=== PATIENT | female | born 1995 | race Two or more races ===

== ENCOUNTER 2016-08-26 04:07 | Inpatient (IN) | payer OTHER ==
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
--- NOTE | ~2016-08-26 | HP ---
Unit #: [id number] #: [id number] Patient: CICI LION [id number] [place] [address] [id number] MR#: [id number] NAME: CICI LION ROOM: [facility] Age: 20 Sex: F Admission Date: 08/26/2016 : 1995 Attending Physician: Ayush Styles M.D. Admitting Physician: Ayush Styles M.D. Primary Care Physician: Primary Care Physician No HISTORY AND PHYSICAL HISTORY OF PRESENT ILLNESS Cici is a 20 year old admitted to [address] [place] [address] with depression and self-harming behavior. She has been scratching her left wrist. PAST MEDICAL HISTORY 1. Obesity. 2. Asthma. PAST SURGICAL HISTORY T and A. ALLERGIES Triaminic, IV dye. SOCIAL HISTORY She denies cigarettes, alcohol and illicit drug use. FAMILY HISTORY Medically noncontributory. REVIEW OF SYSTEMS CONSTITUTIONAL: No fever or chills. HEENT: Denies any sore throat, ear pain or runny nose. CARDIOVASCULAR: Denies chest pain, irregular heart rhythm or palpitations. CHEST: Denies shortness of breath or cough. No hemoptysis. GASTROINTESTINAL: Denies nausea, vomiting, diarrhea or chronic constipation. ENDOCRINE: Denies history of increased thirst or urination. No recent significant weight loss or gain. GENITOURINARY: Denies dysuria, frequency, or hematuria. SKIN: Denies any rashes. HEMATOLOGIC: Denies history of increased bleeding or bruising. MUSCULOSKELETAL: Denies any hot, swollen joints. No generalized muscle pain. NEUROLOGIC: Denies problems with vision or speech. No frequent, severe headaches. No numbness, tingling or weakness in any extremities. Denies loss of bladder or bowel control. CURRENT MEDICATIONS 1. Celexa 20 mg daily. 2. Milk of Magnesia p.r.n. 3. Maalox p.r.n. 4. Tylenol p.r.n. Unit #: [id number] #: [id number] Patient: CICI LION 5. Proventil inhaler p.r.n. PHYSICAL EXAMINATION GENERAL: Alert, obese, in no apparent distress. VITAL SIGNS: Blood pressure 142/88, heart rate 90, respirations 16, temperature 98.6. WEIGHT: 270. HEIGHT: 5 feet 4 inches. SKIN: Warm and dry without rash or lesion. HEENT: Normocephalic. TMs not viewed. Oral and nasal passages clear. Conjunctivae clear. PERRLA. EOMs intact. NECK: Supple without lymphadenopathy or thyromegaly. HEART: Regular rate and rhythm without murmur. LUNGS: Clear. ABDOMEN: Soft, nontender. : Not done. EXTREMITIES: No evidence of cyanosis, clubbing or edema. Moves all without focal deficit. NEUROLOGICAL: Grossly within normal limits. Cranial Nerves: II: Visual angulo are intact. III, IV AND : Extraocular movements are intact. Pupils are equal, round and reactive to light. V: Facial sensation is grossly normal. VII: Facial movements and expression are normal. VIII: Auditory acuity grossly intact. IX, X: Uvula is midline. Phonation is normal. XI: Patient shrugs shoulders and turns head normally. XII: Tongue protrudes in the midline. Sensory and Motor Function: Sensory and motor sensation is grossly normal. Motor: moves all extremities well. Coordination: Gait is normal. Deep Tendon Reflexes: Intact. IMPRESSION 1. Psychiatric admission. 2. Asthma. RECOMMENDATIONS PSYCHIATRIC: Per psychiatrist. MEDICAL: 1. See no contraindications to participate in facility's activities. 2. Continue Proventil inhaler. MEDICAL PROGNOSIS Good. MEDICAL CONDITION Stable. Dictated by... Karla Rivero P.A.-C. for Radha Hampton/mariel TD: 08/26/2016 19:55 JOB #: [id number] Unit #: [id number] #: [id number] Patient: CICI LION HISTORY AND PHYSICAL Page 1 of 1 X Karla Rivero HISTORY AND PHYSICAL
--- NOTE | ~2016-08-26 | DS ---
Unit #: [id number] #: [id number] Patient: CICI LION [id number] [facility] [address] [place] [address] [id number] MR#: [id number] NAME: CICI LION ROOM: [facility] Age: 20 Sex: F Admission Date: 08/26/2016 : 1995 Discharge Date: 09/01/2016 Attending Physician: Ayush Styles M.D. Primary Care Physician: Primary Care Physician No DISCHARGE SUMMARY REASON FOR ADMISSION Cici is a 20-year-old woman who presented reporting increasing helplessness, hopelessness, and suicidal ideation with a plan to cut her wrist. She could not contract for safety and was admitted for stabilization. DIAGNOSTIC STUDIES LABORATORY RESULTS: Please see hospital chart. HOSPITAL COURSE The patient was admitted and placed on suicide precautions. Celexa 20 mg daily was initiated for treatment, which was later increased to 30 mg daily with good tolerance. She participated appropriately in unit groups and activities, and showed decreased suicidality and better mood during the hospitalization. She was able to contract for safety on the date of discharge, and had engaged in active discharge planning with her social security specialist. DISCHARGE DIAGNOSES AXIS I: Major depressive disorder, recurrent. AXIS II: No diagnosis. AXIS III: Mild obesity and history of asthma. AXIS IV: AXIS V: DISCHARGE INSTRUCTIONS Follow up with community mental health and primary care physician. DISCHARGE MEDICATIONS Celexa 30 mg daily for depression. Primary care medicines were Proventil inhaler 2 puffs every 4 hours as needed for shortness of air. CONDITION AT DISCHARGE Improved. PROGNOSIS Fair to good. DIET AND ACTIVITY Per primary care doctor. Unit #: [id number] #: [id number] Patient: CICI LION Dictated by... Radha Toussaint/kelsi TD: 10/19/2016 14:48 JOB #: [id number] DISCHARGE SUMMARY Page 1 of 1 X Ayush Styles MD X DISCHARGE SUMMARY
== END 2016-09-01 16:32 | disposition home or self-care (01) | DRG 885 ==
LOC: P2L 04:07
DX: F33.2 Major depressive disorder, recurrent severe without psychotic features (principal); R45.851 Suicidal ideations; E66.9 Obesity, unspecified